=== PATIENT | male | born 1970 | race Caucasian/White ===

== ENCOUNTER 2016-08-11 19:50 | Emergency (ER) | payer BC, OTHER ==
[~2016-08-11] VITALS: Ht 190.5 cm; Wt 125.0 kg
[~2016-08-11 19:50] MED LIST: AMOXICILLIN 50500 MG PO; AMOXICILLIN875 MG PO; GLUCOPHAGE1000 MG PO; LEVITRA; LEVITRA20 MG PO; LIDODERM PATCH TP; MOTRIN 800800 MG/TAB PO; NAPROXEN220 MG PO; OMNICEF 300MG300 MG PO; PEPCID 20MG TAB20 MG PO; PERCOCET 325 MG1 TA2 PO; PREDNISONE20 MG PO; Q-PAP500 MG PO; TYLENOL 325MG325 MG PO; ULTRAM 50MG TAB50 MG PO; ULTRAM ER200 MG PO; XANAX .25M0.25 MG/TA PO; ZESTRIL 5MG5 MG PO; ZOLOFT 100MG100 MG PO
[2016-08-11 20:02] VITALS: TEMP 97.7
[2016-08-11 20:41] LABS: BASO # 0.1 (0.0-0.2); BASO % 0.9 % (0.0-2.0); EOS # 0.2 (0.0-0.7); EOS % 2.3 % (0-4.0); GRAN % 61.5 % (42.2-75.2); HEMOGLOBIN 14.6 g/dl (13.5-18.0); LYMPH % 25.1 % (20.0-51.0); MEAN CELL VOLUME 87 fl (80.0-100.0); MEAN CORPUSCULAR HEMOGLOBIN 30 pg (27.0-31.0); MEAN CORPUSCULAR HGB CONC 35 g/dl (33.0-37.0); MEAN PLATELET VOLUME 9.1 fl (7.4-10.4); MONO # 0.8 (0.1-0.6); MONO % 9.5 % (1.7-9.3); PLATELET COUNT 240 K/mm3 (130-400); RED BLOOD COUNT 4.84 M/mm3 (4.20-5.60); REDCELL DISTRIBUTION WIDTH-CV 12.4 % (11.5-14.5); WHITE BLOOD COUNT 8.1 K/mm3 (4.8-10.8)
[2016-08-11 20:52] LABS: ALBUMIN 4.1 gm/dL (3.5-5.0); BILIRUBIN,TOTAL 0.7 mg/dL (0.0-1.0); CALCIUM 9.1 mg/dL (8.4-10.2); CREATININE, serum 0.97 mg/dL (0.66-1.25); POTASSIUM 3.7 mmol/L (3.4-5.0); TOTAL PROTEIN 7.5 gm/dL (6.4-8.2)
[2016-08-11 21:31] VITALS: BP 162/98; PULSE 94
== END 2016-08-11 21:33 | disposition home or self-care (01) ==
LOC: COL.ER 19:50
PROVIDERS: Emergency Medicine
DX: M79.661 Pain in right lower leg (principal)

== ENCOUNTER → 2016-08-15 | Outpatient (CLI) | payer BC, OTHER ==
[~2016-08-15] MED LIST changes: +ILOTYCIN5 MG/GM OU
== END ==
LOC: COL.RAD 07:47
DX: M25.561 Pain in right knee (principal)

== ENCOUNTER → 2016-09-05 | Outpatient (CLI) | payer BC, OTHER | LOC: COL.RAD 12:30 | DX: M51.16 Intervertebral disc disorders with radiculopathy, lumbar region (principal) ==

== ENCOUNTER 2016-11-12 07:23 | Emergency (ER) | payer BC, OTHER ==
[~2016-11-12] VITALS: Ht 190.5 cm; Wt 125.0 kg
[~2016-11-12 07:23] MED LIST changes: -ILOTYCIN5 MG/GM OU
[2016-11-12 07:24] VITALS: BP 152/86; PULSE 89; TEMP 98
== END 2016-11-12 08:27 | disposition home or self-care (01) ==
LOC: COL.ER 07:23
DX: J02.9 Acute pharyngitis, unspecified (principal); E11.9 Type 2 diabetes mellitus without complications; I10 Essential (primary) hypertension; Z87.891 Personal history of nicotine dependence; F32.9 Major depressive disorder, single episode, unspecified; J45.909 Unspecified asthma, uncomplicated

== ENCOUNTER 2016-11-16 08:11 | Emergency (ER) | payer BC, OTHER ==
[~2016-11-16] VITALS: Ht 190.5 cm; Wt 125.0 kg
[2016-11-16 08:22] VITALS: BP 120/81; TEMP 97.6
[2016-11-16] MEDS ORDERED: ILOTYCIN5 MG/GM OU (09:09)
[2016-11-16 09:33] VITALS: PULSE 92
== END 2016-11-16 09:33 | disposition home or self-care (01) ==
LOC: COL.ER 08:11
DX: B99.9 Unspecified infectious disease (principal); H10.89 Other conjunctivitis; E11.9 Type 2 diabetes mellitus without complications; Z79.84 Long term (current) use of oral hypoglycemic drugs; F43.10 Post-traumatic stress disorder, unspecified; F41.9 Anxiety disorder, unspecified

== ENCOUNTER → 2016-12-05 | Outpatient (CLI) | payer BC, OTHER ==
[~2016-12-05] MED LIST changes: +ILOTYCIN5 MG/GM OU
== END ==
LOC: COL.RAD 11-28 14:00
DX: M75.81 Other shoulder lesions, right shoulder (principal); M19.011 Primary osteoarthritis, right shoulder; S43.431A Superior glenoid labrum lesion of right shoulder, initial encounter

== ENCOUNTER 2017-07-09 08:08 | Emergency (ER) | payer BC, OTHER ==
[~2017-07-09] VITALS: Ht 190.5 cm; Wt 125.0 kg
[2017-07-09 08:10] VITALS: BP 136/68
[2017-07-09] MEDS ORDERED: ANTI-INFLAMMATORY (08:17)
[2017-07-09] MEDS ORDERED: MUSCLE RELAX (08:18)
[2017-07-09 09:27] VITALS: PULSE 100
== END 2017-07-09 09:29 | disposition home or self-care (01) ==
LOC: COL.ER 08:08
DX: S83.92XA Sprain of unspecified site of left knee, initial encounter (principal); I10 Essential (primary) hypertension; M25.551 Pain in right hip; G89.29 Other chronic pain; Z79.84 Long term (current) use of oral hypoglycemic drugs; W00.0XXA Fall on same level due to ice and snow, initial encounter; X50.1XXA Overexertion from prolonged static or awkward postures, initial encounter; Y92.481 Parking lot as the place of occurrence of the external cause

== ENCOUNTER → 2018-09-07 | Outpatient (CLI) | payer BC, OTHER | LOC: COL.RAD 12:32 | DX: M51.36 Other intervertebral disc degeneration, lumbar region (principal) ==

== ENCOUNTER 2018-09-13 11:28 | Emergency (ER) | payer BC, OTHER ==
[~2018-09-13] VITALS: Ht 190.5 cm; Wt 117.3 kg
[~2018-09-13 11:28] MED LIST changes: +ANTI-INFLAMMATORY; +MUSCLE RELAX
[2018-09-13 11:32] VITALS: BP 122/65; TEMP 97.6
[2018-09-13] MEDS ORDERED: NORCO 325 MG-51 TAB PO (15:20)
[2018-09-13] MEDS ORDERED: FLEXERIL 1010 MG/TAB PO (15:20)
[2018-09-13 15:27] VITALS: PULSE 70
== END 2018-09-13 15:29 | disposition home or self-care (01) ==
LOC: COL.ER 11:28
DX: M54.5 Low back pain (principal)
CPT/HCPCS: J1170

== ENCOUNTER → 2019-03-04 | Outpatient (CLI) | payer BC, OTHER ==
[~2019-03-04] MED LIST changes: +FLEXERIL 1010 MG/TAB PO; +NORCO 325 MG-51 TAB PO
== END ==
LOC: COL.RAD 08:48
DX: R10.11 Right upper quadrant pain (principal)

== ENCOUNTER → 2019-03-11 | Outpatient (CLI) | payer BC, OTHER | LOC: COL.RAD 06:54 | DX: R10.11 Right upper quadrant pain (principal) | CPT/HCPCS: A9537 ==

== ENCOUNTER 2019-05-27 06:06 | Day surgery (SDC) | payer BC, OTHER ==
[~2019-05-27] VITALS: Ht 190.5 cm; Wt 140.0 kg
[~2019-05-27 06:06] MED LIST changes: -GLUCOPHAGE1000 MG PO; +GLUCOPHAGE500 MG/TAB PO; +PRINIVIL5 MG PO; -ZESTRIL 5MG5 MG PO
[2019-05-27] MEDS ORDERED: ASPIRIN 81M81 MG/TA2 PO (06:19)
[2019-05-27] MEDS ORDERED: ZOCOR 20MG20 MG PO (06:20)
[2019-05-27 06:45] VITALS: BP 153/88; PULSE 80; TEMP 97.9
[2019-05-27 07:45] VITALS: BP 137/76; PULSE 79; TEMP 98
--- NOTE | 2019-05-27 07:45 | NUR ---
Pt returned to [facility]. Assisted with ambulation from cart to recliner in bay. , Sheron, present in room. Pts VSS-see flowsheet. Requested muffin and cranberry juice. Call light in reach. Denies needs or complaints at this time.
[2019-05-27 08:00] VITALS: BP 146/92; PULSE 78
[2019-05-27 08:15] VITALS: BP 134/71; PULSE 77
[2019-05-27 08:30] VITALS: BP 129/72; PULSE 77
--- NOTE | 2019-05-27 08:40 | NUR ---
Pt tolerated muffin and juice. VS remain stable-see flowsheet. Dr Villatoro in to see pt. Discharge teaching completed, pt and verbalized understanding. IV removed wit pressure dressing applied. Pt dressed and taken via wheelchair to private vehicle for dc home with driving.
--- NOTE | 2019-05-27 10:45 | NUR ---
Initial visit; Patient and his thanked [employer] for offering God's blessings and a good report from his tests and procedure.
== END 2019-05-27 08:40 | disposition home or self-care (01) ==
LOC: SDCO 06:06
DX: K21.9 Gastro-esophageal reflux disease without esophagitis (principal); K29.30 Chronic superficial gastritis without bleeding; R19.7 Diarrhea, unspecified; E11.9 Type 2 diabetes mellitus without complications; I10 Essential (primary) hypertension; J45.909 Unspecified asthma, uncomplicated; G47.33 Obstructive sleep apnea (adult) (pediatric); K76.0 Fatty (change of) liver, not elsewhere classified; F41.9 Anxiety disorder, unspecified; F43.10 Post-traumatic stress disorder, unspecified; Z83.79 Family history of other diseases of the digestive system; Z79.84 Long term (current) use of oral hypoglycemic drugs; Z87.891 Personal history of nicotine dependence
CPT/HCPCS: J2704; J7030

== ENCOUNTER → 2020-10-23 | Outpatient (CLI) | payer BC, OTHER ==
[~2020-10-23] MED LIST changes: +ASPIRIN 81M81 MG/TA2 PO; +ZOCOR 20MG20 MG PO
== END ==
LOC: COL.RAD 08:46
DX: K76.0 Fatty (change of) liver, not elsewhere classified (principal)

== ENCOUNTER → 2021-01-07 | Outpatient (CLI) | payer BC, OTHER | LOC: COL.RAD 12:46 | DX: S43.431A Superior glenoid labrum lesion of right shoulder, initial encounter (principal); M16.11 Unilateral primary osteoarthritis, right hip | CPT/HCPCS: A9585; J3301; Q9967 ==